=== PATIENT | female | born 1940 | race African-American/Black ===

== ENCOUNTER 2021-02-26 12:53 | Inpatient (IN) | payer MEDICARE, MEDICAID ==
[~2021-02-26] VITALS: Ht 167.6 cm; Wt 55.1 kg
[2021-02-26 14:06] LABS: CHLORIDE 109 mEq/L (98-107)
[2021-02-26 14:21] LABS: HEMATOCRIT. 26.1 % (36.0-48.0); HEMOGLOBIN. 7.8 g/dL (12.0-16.0); MEAN CORPUSCULAR HEMOGLOBIN 22.1 pg (28.0-32.0); MEAN CORPUSCULAR VOLUME 74.3 fL (81.0-99.0); RED BLOOD CELL COUNT 3.51 mill/uL (4.2-5.4); RED CELL DISTRIBUTION WIDTH 20.3 % (11.6-14.6)
[2021-02-26 14:53] LABS: PLATELET ESTIMATE DECREASED
[2021-02-26 14:55] LABS: PLATELET 79 x1000/uL (130-400)
[2021-02-26] MEDS ORDERED: SODIUM CHLORIDE 0.9% 1,000 ML IV NR (16:30)
[2021-02-26] MEDS ORDERED: ONDANSETRON HCL 4MG/2ML INJ IV NR (16:30)
[2021-02-26] MEDS ORDERED: FAMOTIDINE 20MG/2ML VIAL IV NR (16:30)
[2021-02-26 21:36] LABS: CLARITY URINE CLEAR (CLEAR); COLOR URINE YELLOW (YELLOW); KETONES URINE NEGATIVE (NEGATIVE); LEUKOCYTE ESTERASE URINE 1+ (NEGATIVE); NITRITE URINE NEGATIVE (NEGATIVE); OCCULT BLOOD URINE NEGATIVE (NEGATIVE); PROTEIN URINE TRACE (NEGATIVE); SPECIFIC GRAVITY URINE 1.036 (1.005-1.030)
[2021-02-26 22:18] LABS: HEMATOCRIT. 23.6 % (36.0-48.0); HEMOGLOBIN. 7.1 g/dL (12.0-16.0); MEAN CORPUSCULAR HEMOGLOBIN 22.3 pg (28.0-32.0); MEAN CORPUSCULAR VOLUME 74.3 fL (81.0-99.0); MEAN PLATELET VOLUME 8.6 fl (7.4-10.4); PLATELET 71 x1000/uL (130-400); RED BLOOD CELL COUNT 3.18 mill/uL (4.2-5.4); RED CELL DISTRIBUTION WIDTH 20.3 % (11.6-14.6)
[2021-02-26] MEDS ORDERED: ONDANSETRON HCL 4MG/2ML INJ IV PRN (22:45)
[2021-02-26] MEDS ORDERED: GUAIFENESIN 200MG/10ML SUGAR FREE UDC PO PRN (22:45)
[2021-02-26] MEDS ORDERED: ACETAMINOPHEN 325MG TABLET PO PRN ×2 (22:45)
[2021-02-26] MEDS ORDERED: HYDROCODONE/ACETAMINOPHEN 5/325MG TABLET PO PRN (22:45)
[2021-02-26] MEDS: CEFTRIAXONE 1 G PREMIX 50 ML IV NR (23:09)
[2021-02-26 23:17] LABS: PLATELET ESTIMATE DECREASED
[2021-02-27] MEDS: CEFTRIAXONE 1 G PREMIX 50 ML IV NR (01:00)
[2021-02-27] MEDS: AZITHROMYCIN 500MG/250ML 250 ML IV NR ×2 (01:57→03:23)
[2021-02-27 06:26] LABS: MEAN CORPUSCULAR HEMOGLOBIN 22.2 pg (28.0-32.0); MEAN CORPUSCULAR VOLUME 73.5 fL (81.0-99.0); RED BLOOD CELL COUNT 2.83 mill/uL (4.2-5.4)
[2021-02-27 06:27] LABS: CHLORIDE 109 mEq/L (98-107)
[2021-02-27 06:35] LABS: PHOSPHORUS 3.4 mg/dL (2.5-4.9)
[2021-02-27 06:43] LABS: HEMATOCRIT. 20.8 % (36.0-48.0); HEMOGLOBIN. 6.3 g/dL (12.0-16.0)
[2021-02-27 11:05] LABS: HEMATOCRIT. 23.4 % (36.0-48.0); HEMOGLOBIN. 7.1 g/dL (12.0-16.0); MEAN CORPUSCULAR HEMOGLOBIN 22.2 pg (28.0-32.0); MEAN CORPUSCULAR VOLUME 73.4 fL (81.0-99.0); RED BLOOD CELL COUNT 3.19 mill/uL (4.2-5.4); RED CELL DISTRIBUTION WIDTH 19.9 % (11.6-14.6)
[2021-02-27 13:31] LABS: NUCLEATED RED BLOOD CELLS 1 /100 WBC
[2021-02-27 13:32] LABS: PLATELET ESTIMATE DECREASED
[2021-02-27 13:34] LABS: PLATELET 75 x1000/uL (130-400)
[2021-02-27 14:52] LABS: MEAN PLATELET VOLUME 9.8 fl (7.4-10.4); PLATELET 77 x1000/uL (130-400); PLATELET ESTIMATE DECREASED
[2021-02-27] MEDS ORDERED: NALOXONE HCL 0.4MG/ML VIAL IV PRN (17:00)
[2021-02-27 18:16] LABS: INR 1.1; PROTHROMBIN TIME 11.9 sec (9.6-11.0)
[2021-02-27 18:37] VITALS: BP 123/55
[2021-02-27] MEDS ORDERED: FERR325T23 MT (18:48)
[2021-02-27] MEDS ORDERED: TOPUD MT (18:48)
[2021-02-27] MEDS ORDERED: INFLUENZA VACCINE 05/PF 0.5 ML SYRINGE IM ONE (19:15)
[2021-02-27 20:50] LABS: HEMOGLOBIN 7.6 g/dL (12.0-16.0)
[2021-02-27 20:51] VITALS: BP 123/45
[2021-02-28] VITALS: BP 120/46
[2021-02-28 04:00] VITALS: BP 125/55
[2021-02-28 07:35] LABS: CHLORIDE 111 mEq/L (98-107)
[2021-02-28 07:53] LABS: TOTAL IRON BINDING CAPACITY 169 ug/dL (250-450)
[2021-02-28 07:57] LABS: HEMATOCRIT. 22.9 % (36.0-48.0); HEMOGLOBIN. 7.1 g/dL (12.0-16.0); MEAN CORPUSCULAR HEMOGLOBIN 23.7 pg (28.0-32.0); MEAN CORPUSCULAR VOLUME 76.6 fL (81.0-99.0); RED BLOOD CELL COUNT 2.99 mill/uL (4.2-5.4); RED CELL DISTRIBUTION WIDTH 19.6 % (11.6-14.6)
[2021-02-28 08:00] VITALS: BP 101/48
[2021-02-28 12:00] VITALS: BP 118/63
[2021-02-28 13:12] LABS: PLATELET ESTIMATE DECREASED
[2021-02-28 13:14] LABS: MEAN PLATELET VOLUME 9.1 fl (7.4-10.4); PLATELET 74 x1000/uL (130-400)
[2021-02-28 16:00] VITALS: BP 135/53
[2021-02-28] MEDS ORDERED: IPRATROPIUM/ALBUTEROL 0.5-3(2.5)MG/3ML NEB HHN PRN (16:15)
[2021-02-28 20:00] VITALS: BP 124/58
[2021-03-01] VITALS (18 sets, daily range): BP systolic 113–140; BP diastolic 48–78
[2021-03-01 05:26] LABS: CHLORIDE 109 mEq/L (98-107)
[2021-03-01 05:35] LABS: T4 FREE 1.47 ng/dL (0.76-1.46)
[2021-03-01 06:18] LABS: HEMATOCRIT. 23.8 % (36.0-48.0); HEMOGLOBIN. 7.7 g/dL (12.0-16.0); MEAN CORPUSCULAR HEMOGLOBIN 24.1 pg (28.0-32.0); MEAN CORPUSCULAR VOLUME 74.5 fL (81.0-99.0); PLATELET 70 x1000/uL (130-400); RED CELL DISTRIBUTION WIDTH 19.3 % (11.6-14.6)
[2021-03-01] MEDS ORDERED: SODIUM BICARBONATE 4% (2.4MEQ) 5ML VIAL IV ONE (12:25)
[2021-03-01] MEDS ORDERED: LIDOCAINE HCL 1% 20ML VIAL (Pyxis) INJ ONE (12:26)
[2021-03-01] MEDS ORDERED: FENTANYL CITRATE/PF 50MCG/ML 2ML VIAL ONE (12:27)
[2021-03-01] MEDS ORDERED: FENTANYL CITRATE/PF 50MCG/ML 2ML VIAL IV ONE (14:30)
[2021-03-01 22:24] LABS: PLATELET ESTIMATE DECREASED
[2021-03-02] VITALS (7 sets, daily range): BP systolic 100–117; BP diastolic 45–58
[2021-03-02 07:45] LABS: CHLORIDE 109 mEq/L (98-107)
[2021-03-02 07:58] LABS: PHOSPHORUS 3.2 mg/dL (2.5-4.9)
[2021-03-02 08:02] LABS: T4 FREE 1.48 ng/dL (0.76-1.46)
[2021-03-02 08:30] LABS: HEMATOCRIT. 22.4 % (36.0-48.0); HEMOGLOBIN. 7.3 g/dL (12.0-16.0); MEAN CORPUSCULAR HEMOGLOBIN 23.4 pg (28.0-32.0); MEAN CORPUSCULAR VOLUME 72.2 fL (81.0-99.0); RED CELL DISTRIBUTION WIDTH 19.9 % (11.6-14.6)
[2021-03-02] MEDS: PREDNISONE 20MG TABLET PO SCH (18:21)
[2021-03-02 21:04] LABS: PLATELET ESTIMATE DECREASED
[2021-03-02] MEDS: GUAIFENESIN 600MG ER TABLET PO SCH (21:32)
[2021-03-02] MEDS: IPRATROPIUM/ALBUTEROL 0.5-3(2.5)MG/3ML NEB HHN SCH (21:39)
[2021-03-02] MEDS ORDERED: CIPR750T4 MT (22:42)
[2021-03-02] MEDS ORDERED: AMOX1TAB16 PO (22:42)
[2021-03-03] VITALS: BP 116/61
[2021-03-03] MEDS: IPRATROPIUM/ALBUTEROL 0.5-3(2.5)MG/3ML NEB HHN SCH ×3 (01:13→15:08)
[2021-03-03 04:00] VITALS: BP 112/62
[2021-03-03 08:55] LABS: PLATELET 75 x1000/uL (130-400)
[2021-03-03] MEDS: GUAIFENESIN 600MG ER TABLET PO SCH (09:24)
[2021-03-03] MEDS: PREDNISONE 20MG TABLET PO SCH (09:24)
[2021-03-03 12:00] VITALS: BP 138/60
[2021-03-03 16:00] VITALS: BP 119/78
[2021-03-03] MEDS ORDERED: DEXTL PO (16:58)
[2021-03-03] MEDS ORDERED: P20 PO (16:58)
[2021-03-03] MEDS ORDERED: FERR-63 PO (17:02)
[2021-03-03] MEDS ORDERED: FERROUS SULFATE 325MG TABLET PO SCH (18:00)
[2021-03-03 18:44] VITALS: BP 116/81
[2021-03-03 20:00] VITALS: BP 122/76
[2021-03-04] MEDS ORDERED: ENOXAPARIN 30MG/0.3ML SYR SUBCUT SCH (09:00)
[2021-03-05] MEDS ORDERED: FERROUS SULFATE 325MG TABLET PO SCH ×2 (08:00→13:00)
== END 2021-03-03 20:35 | disposition home health service (06) | DRG 180 ==
LOC: ER 12:53 → MICUSO 22:09 → SUPCPDRO 22:12 → EDBEDREQTM 02-27 04:10 → EDBEDREQSVC 02-27 04:10 → 7EST 02-27 16:53
PROVIDERS: ADMIT Internal Medicine; ATTEND Internal Medicine
PROC: 30233N1 Transfusion of Nonautologous Red Blood Cells into Peripheral Vein, Percutaneous Approach (ICD-10-PCS; 2021-02-27)
PROC: 0BBK3ZX Excision of Right Lung, Percutaneous Approach, Diagnostic (ICD-10-PCS; principal; 2021-03-01)
DX: C78.01 Secondary malignant neoplasm of right lung (principal); E43 Unspecified severe protein-calorie malnutrition; J96.01 Acute respiratory failure with hypoxia; D61.818 Other pancytopenia; I31.3 Pericardial effusion (noninflammatory); J90 Pleural effusion, not elsewhere classified; N39.0 Urinary tract infection, site not specified; M48.54XA Collapsed vertebra, not elsewhere classified, thoracic region, initial encounter for fracture; Z68.1 Body mass index [BMI] 19.9 or less, adult; C78.02 Secondary malignant neoplasm of left lung; D50.9 Iron deficiency anemia, unspecified; I10 Essential (primary) hypertension; Z20.822 Contact with and (suspected) exposure to COVID-19; E05.20 Thyrotoxicosis with toxic multinodular goiter without thyrotoxic crisis or storm; R16.1 Splenomegaly, not elsewhere classified; I27.81 Cor pulmonale (chronic); K80.20 Calculus of gallbladder without cholecystitis without obstruction; D70.9 Neutropenia, unspecified; R50.81 Fever presenting with conditions classified elsewhere; Z80.3 Family history of malignant neoplasm of breast; Z82.49 Family history of ischemic heart disease and other diseases of the circulatory system; Z83.3 Family history of diabetes mellitus; E04.2 Nontoxic multinodular goiter
CPT/HCPCS: 20206; 36415; 71045; 71260; 74177; 76536; 77012; 80048; 80053; 81003; 82164; 82533; 82728; 83520; 83540; 83550; 83605; 83615; 83735; 83880; 84100; 84134; 84145; 84439; 84443; 84481; 84484; 85014; 85018; 85025; 85049; 85384; 86140; 86850; 86900; 86920; 87426; 87804; 90686; 92610; 93005; 97161; 97166; 99152; 99153; 99285; C1893; J0456; J0696; J2405; J3010; J3490; J7512; P9016; G0500